=== PATIENT | female | born 1960 | race African-American/Black ===

== ENCOUNTER 2018-10-31 08:45 | Outpatient (CLI) | payer MEDICARE, OTHER ==
--- NOTE | 2018-10-31 09:30 | CT ---
Exam: ABDOMEN CT WITHOUT CONTRAST PELVIC CT WITHOUT CONTRAST: HISTORY: == COMPARISON: None. FINDINGS: Chronic changes in the right lung base. Possible left lower lobe infiltrate. Heart size is normal. No significant pericardial effusion. Visualized aorta has a normal caliber CT ABDOMEN: 0.9 x 1.3 cm hypodensity right hepatic lobe with attenuation coefficient of 22 Hounsfield units. No additional solid organ abnormalities. Decreased visceral fat limits evaluation for inflammatory ch yaya. No mesenteric mass. Left abdominal wall hernia containing mesenteric fat. The defect measures 1.5 cm. Bilaterally, no obstructive uropathy. Limited evaluation of the alimentary canal by lack of oral contrast. No evidence of bowel obstruction . Ileocecal junction is unremarkable. Appendix is difficult to appreciate. No inflammation of the cecal apex. Scattered fecal material in nondistended, nondilated colon. No evidence of a mass in the right lower quadrant. Grossly unremarkable gallbladder. CT PELVIS: Uterus and adnexal structures are grossly unremarkable. Unremarkable urinary bladder. No pelvic mass, lymphadenopathy, free air, or free fluid. Presumed chronic changes involving the osseous structures. IMPRESSION: 1. No acute abnormality in the abdomen or pelvis. 2. Hypodensity in the right hepatic lobe, too small to completely characterize. Complex cyst is a co nsideration. Confirmation with ultrasound is recommended. 3. Anterior left abdominal wall hernia containing mesenteric fat. Transcribed Date/Time: 10/31/2018 9:42 AM
== END 2018-10-31 08:46 | disposition home or self-care (01) ==
LOC: NAV CT 08:45
PROVIDERS: ATTEND Internal Medicine
DX: R19.03 Right lower quadrant abdominal swelling, mass and lump (principal); K43.9 Ventral hernia without obstruction or gangrene; R93.2 Abnormal findings on diagnostic imaging of liver and biliary tract
CPT/HCPCS: 74176

== ENCOUNTER 2018-11-13 10:10 | Outpatient (CLI) | payer MEDICARE, MEDICAID ==
--- NOTE | 2018-11-13 12:26 | ULT ---
ABDOMINAL ULTRASOUND HISTORY: Abnormal CT abdomen demonstrating a lesion within the right hepatic lobe. Ultrasound is recommended f or further evaluation. FINDINGS: Liver: There is a small 9 mm anechoic lesion seen within the right hepatic lobe corresponds to the le yrn seen on recent CT examination, and sonographic findings are most compatible with a small cyst. The liver otherwise has a normal sonographic appearance. Gallbladder: Multiple shadowing echogenic foci are seen within the gallbladder lumen compatible with gallbladder calculi largest measuring 1.2 cm. No gallbladder wall thickening or pericholecystic fluid is seen. Common duct: Common duct is normal in caliber measuring measuring 5 mm in diameter. Pancreas: The limited visualized pancreas demonstrates a normal sonographic appearance. IVC: Limited visualized IVC has a normal sonographic appearance. Aorta: The proximal and mid abdominal aorta are normal in caliber. The distal abdominal aorta is obsc ured by shadowing from bowel gas. Spleen: Heterogeneous in appearance and at the upper limits normal to borderline increased in size me asuring 13.5 cm in length. Kidneys: Kidneys demonstrate a normal sonographic appearance bilaterally with the right kidney measur ing 10.7 cm in length, and the left kidney measures 9.1 cm in length. There is suggestion of a ventral abdominal wall hernia in a supraumbilical location. However, this is better visualized and evaluated on recent CT scan exam. IMPRESSION: 1. Right hepatic lobe cyst corresponding to CT scan abnormality. 2. Cholelithiasis. The common duct is normal in caliber. 3. Nonspecific heterogeneity of the spleen which is also at the upper limits of normal in size to bor derline enlarged.
== END 2018-11-13 10:11 | disposition home or self-care (01) ==
LOC: NAV ULT 10:10
PROVIDERS: ATTEND Internal Medicine
DX: R93.5 Abnormal findings on diagnostic imaging of other abdominal regions, including retroperitoneum (principal); K76.89 Other specified diseases of liver; K80.20 Calculus of gallbladder without cholecystitis without obstruction; R93.3 Abnormal findings on diagnostic imaging of other parts of digestive tract
CPT/HCPCS: 76700

== ENCOUNTER 2020-03-17 18:45 | Emergency (ER) | payer MEDICARE, MEDICAID ==
[2020-03-17 19:42] LABS: CRP (Inflammatory) 4.09 mg/dL (= or < 0.5)
[2020-03-17 19:46] LABS: ALT (SGPT) 10 U/L (8-55); AST (SGOT) 19 U/L (5-34); Albumin 3.5 g/dL (3.5-5.0); Alkaline Phosphatase 62 U/L (40-110); Anion Gap 15 mmol/L (10-20); BUN (Urea Nitrogen) 13 mg/dL (9.8-20.1); Bilirubin, Total 0.2 mg/dL (0.2-1.2); Calc. Creatinine Clearance 0 mL/min (70-130); Calcium 8.6 mg/dL (7.8-10.44); Carbon Dioxide 25 mmol/L (22-29); Chloride 104 mmol/L (98-107); Estimated GFR-MDRD 88; Globulin 4.9 g/dL (2.4-3.5); Glucose 148 mg/dL (70-105); Potassium 4.1 mmol/L (3.5-5.1); Protein, Total 8.4 g/dL (6.0-8.3); Sodium 140 mmol/L (136-145)
[2020-03-17 19:54] LABS: #Basophils 0.1 thou/uL (0.0-0.2); #Lymphocytes 1.5 thou/uL (1.20-3.40); #Monocytes 0.5 thou/uL (0.11-0.59); #Neutrophils 2.7 thou/uL (1.40-6.50); %Basophils 1.3 % (0.0-1.0); %Eosinophils 0.7 % (0.0-10.0); %Lymphocytes 31.5 % (21.0-51.0); %Monocytes 10.8 % (0.0-10.0); %Neutrophils 55.6 % (42.0-75.0); Differential Comment SCANNED; Hemoglobin 12.1 g/dL (12.0-16.0); Mean Corpuscular HGB CONC 31.4 g/dL (32.0-36.0); Mean Corpuscular Hemoglobin 32.2 pg (27.0-31.0); Mean Platelet Volume 7.2 fL (7.4-10.4); Platelet Count 278 thou/uL (130-400); RBC Distribution Width 13.6 % (11.5-14.5); Red Blood Cell (RBC) Count 3.76 mill/uL (4.20-5.40); White Blood Cell (WBC) Count 4.8 thou/uL (4.8-10.8)
[2020-03-17 19:57] LABS: Uric Acid 4.1 mg/dL (2.6-6.0)
--- NOTE | 2020-03-17 19:58 | RAD ---
LEFT HIP TWO VIEWS: History: Injury. FINDINGS: Moderate to severe degenerative changes. Spurring from the femoral head and acetabulum. Irregularity of the femoral head contour. Joint narrowing. Subchondral cystic changes. No acute fracture identified. IMPRESSION: Chronic degenerative changes as described. Avascular necrosis cannot be excluded. Consider elective M RI to further evaluate. POS: RANDY
== END 2020-03-17 21:58 | disposition short-term general hospital (02) ==
LOC: NAV ERS 18:45
DX: M25.561 Pain in right knee (principal); L89.229 Pressure ulcer of left hip, unspecified stage; L89.219 Pressure ulcer of right hip, unspecified stage; Q90.9 Down syndrome, unspecified; M19.90 Unspecified osteoarthritis, unspecified site; E66.01 Morbid (severe) obesity due to excess calories; E78.5 Hyperlipidemia, unspecified; Z79.82 Long term (current) use of aspirin; Z79.899 Other long term (current) drug therapy
CPT/HCPCS: 80053; 83605; 84550; 85025; 85379; 86140